=== PATIENT | male | born 1945 | race Caucasian/White ===

== ENCOUNTER 2018-03-09 18:09 | Emergency (ER) | payer MEDICARE ==
[~2018-03-09] VITALS: Ht 185.4 cm; Wt 91.0 kg
[2018-03-09] MEDS ORDERED: HYDROCODONE/ACETAMINOPHEN 5/325MG TABLET PO ONE (18:45)
[2018-03-09 19:05] VITALS: BP 138/85
== END 2018-03-09 19:15 | disposition home or self-care (01) ==
LOC: ER 18:26
DX: K08.89 Other specified disorders of teeth and supporting structures (principal); I10 Essential (primary) hypertension; Z85.828 Personal history of other malignant neoplasm of skin
CPT/HCPCS: 99283